=== PATIENT | male | born 1990 | race Caucasian/White ===

== ENCOUNTER 2017-04-06 13:11 | Emergency (ER) | payer OTHER ==
[~2017-04-06] VITALS: Ht 182.9 cm; Wt 114.8 kg
[~2017-04-06 13:11] MED LIST: OTIPRIO1 ML BOTH EARS
[2017-04-06] MEDS ORDERED: MOTRIN800 MG PO (14:17)
[2017-04-06 14:42] VITALS: BP 147/96
== END 2017-04-06 14:44 | disposition home or self-care (01) ==
LOC: RME 13:11 → EME 13:11 → RME 14:44
DX: S93.402A Sprain of unspecified ligament of left ankle, initial encounter (principal); Y99.0 Civilian activity done for income or pay; X50.9XXA Other and unspecified overexertion or strenuous movements or postures, initial encounter; M25.572 Pain in left ankle and joints of left foot; G89.29 Other chronic pain; F17.200 Nicotine dependence, unspecified, uncomplicated; J45.909 Unspecified asthma, uncomplicated
CPT/HCPCS: 73610; 99281; 99284

== ENCOUNTER 2018-04-29 19:10 | Emergency (ER) | payer OTHER ==
[~2018-04-29] VITALS: Ht 180.3 cm; Wt 88.9 kg
[~2018-04-29 19:10] MED LIST changes: +MOTRIN800 MG PO
[2018-04-29 19:49] LABS: HEMATOCRIT 39.2 % (38.0-50.0); HEMOGLOBIN 13.2 G/DL (12.5-16.6); MCH 28.3 PG (29.0-34.0); MCHC 33.7 G/DL (30.0-36.0); MCV 84.1 FL (86-99); PLATELET COUNT 372 K/uL (156-360); RBC DIS.WIDTH-SD 35.9 % (39-53); RED BLOOD COUNT 4.66 M/uL (4.00-5.50); WHITE BLOOD COUNT 14.7 K/uL (4.1-10.2)
[2018-04-29 20:03] LABS: CHLORIDE 107 mEq/L (99-109); POTASSIUM 3.9 mEq/L (3.7-5.4); SODIUM 141 mEq/L (136-147)
[2018-04-29 20:05] LABS: GLUCOSE 91 mg/dL (70-99)
[2018-04-29 20:09] LABS: CREATININE 1.8 mg/dL (0.6-1.3); GFR ESTIMATE (CALCULATED) 47 mL/min/ (58.99-99999)
[2018-04-29 20:10] LABS: UREA NITROGEN (BUN) 19 mg/dL (9-23)
[2018-04-30] MEDS ORDERED: TRAZODONE HCL50 MG PO (00:25)
[2018-04-30] MEDS ORDERED: ZOFRAN4 MG PO (00:26)
[2018-04-30 01:09] VITALS: BP 102/60
== END 2018-04-30 01:10 | disposition home or self-care (01) ==
LOC: EME 19:10
DX: F11.23 Opioid dependence with withdrawal (principal); F17.200 Nicotine dependence, unspecified, uncomplicated; F41.9 Anxiety disorder, unspecified
CPT/HCPCS: 80048; 81003; 85027; 93005; 99281; 99284; J2405; J7030